=== PATIENT | female | born 2000 | race Caucasian/White ===

== ENCOUNTER → 2020-07-19 | Outpatient (CLI) | payer SELFPAY ==
--- NOTE | 2020-08-07 07:48 | REP ---
GALLBLADDER ULTRASOUND: CLINICAL: Right upper quadrant pain x1 week. TECHNIQUE: Real time, farris scale and color evaluation using curved array transducer. FINDINGS: The liver and visualized pancreas are normal in contour, size and echogenicity without focal hepatic or pancreatic lesion identified. The gallbladder is normal and without gallstones, wall thickening or pericholecystic fluid. No biliary ductal dilatation is appreciated and the common bile duct measures 3.7 mm in diameter. The right kidney is normal in reniform shape without hydronephrosis and measures 9.7 x 4.7 x 4.1 cm. No ascites in the visualized right upper quadrant. IMPRESSION: Normal right upper quadrant and gallbladder ultrasound. MTDD
== END ==
LOC: M RAD 10:09
PROVIDERS: ATTEND Physician Assistant Medical
DX: R10.11 Right upper quadrant pain (principal)

== ENCOUNTER → 2020-10-13 | Outpatient (REF) | payer SELFPAY ==
[~2020-10-13] MED LIST: BUSP5TA; ESCI20TA16
== END ==
LOC: M LABSMTC 08:35 → EDSTATUS 09:30 → M LABSMTC 10:26
PROVIDERS: ATTEND Pediatrics
DX: Z20.828 Contact with and (suspected) exposure to other viral communicable diseases (principal)

== ENCOUNTER → 2020-10-18 | Outpatient (REF) | payer BC ==
[~2020-10-18] MED LIST changes: +ESCI20TA; -ESCI20TA16
[2020-10-18 18:02] LABS: INFLUENZA A AMPLIFICATION NEGATIVE (NEGATIVE); INFLUENZA B AMPLIFICATION NEGATIVE (NEGATIVE)
== END ==
LOC: M LAB REF 16:36
PROVIDERS: ATTEND Physician Assistant
DX: R50.9 Fever, unspecified (principal)

== ENCOUNTER 2020-10-19 16:42 | Emergency (ER) | payer BC ==
[~2020-10-19] VITALS: Ht 165.1 cm; Wt 74.7 kg
[2020-10-19 16:42] VITALS: BP 123/80
[2020-10-19] MEDS ORDERED: BUSP5TA (16:59)
[2020-10-19] MEDS ORDERED: ESCI20TA (16:59)
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
== END 2020-10-19 18:20 | disposition home or self-care (01) ==
LOC: M ED 16:42
DX: S09.90XA Unspecified injury of head, initial encounter (principal); V49.40XA Driver injured in collision with unspecified motor vehicles in traffic accident, initial encounter; Y92.9 Unspecified place or not applicable; Y93.9 Activity, unspecified; Y99.9 Unspecified external cause status; F41.9 Anxiety disorder, unspecified; Z79.899 Other long term (current) drug therapy

== ENCOUNTER → 2020-10-30 | Outpatient (REF) | payer SELFPAY ==
[~2020-10-30] MED LIST changes: -ESCI20TA; +ESCI20TA16
== END ==
LOC: M LABSMTC 10:20 → EDSTATUS 14:05 → M LABSMTC 14:51
PROVIDERS: ATTEND Pediatrics
DX: Z20.828 Contact with and (suspected) exposure to other viral communicable diseases (principal)

== ENCOUNTER → 2025-07-13 | Outpatient (RCR) | LOC: EEVIPCON 07-02 15:58 → EDUNIT# 07-02 15:58 → M EMPSKH 07-02 15:58 | PROVIDERS: ATTEND Family Medicine | DX: Z20.828 Contact with and (suspected) exposure to other viral communicable diseases (principal) ==